=== PATIENT | male | born 1970 | race Caucasian/White ===

== ENCOUNTER 2020-05-22 13:20 | Inpatient (IN) | payer MEDICAID, SELFPAY ==
[~2020-05-22] VITALS: Ht 175.3 cm; Wt 75.1 kg
[~2020-05-22 13:20] MED LIST: /THIA10TA OR; FOLI1TAB OR; THERGRAN PO; ZOLO50TA OR
--- OUTSIDE RECORDS SUMMARY | 2020-05-22 13:25 | CCD ---
Author Author [facility] Organization [facility] Address Unknown Phone Unavailable Support Name Relationship Address Phone UE Next Of Kin Unknown Unavailable MCCARTHY [place] [address] [phone] COUGH, KULWANT Next Of Kin [address] [place], [place] [id number] STEVEN GUTIERREZ Next Of Kin Unknown Re-disclosure Warning The records that you are about to access may contain information from federally-assisted alcohol or drug abuse programs. If such information is present, then the following federally mandated warning applies: This information has been disclosed to you from records protected by federal confidentiality rules (42 CFR part 2). The federal rules prohibit you from making any further disclosure of this information unless further disclosure is expressly permitted by the written consent of the person to whom it pertains or as otherwise permitted by 42 CFR part 2. A general authorization for the release of medical or other information is NOT sufficient for this purpose. The Federal rules restrict any use of the information to criminally investigate or prosecute any alcohol or drug abuse patient.The records that you are about to access may contain highly sensitive health information, the redisclosure of which is protected by Article 27-F of the [facility] Public Health law. If you continue you may have access to information: Regarding HIV / AIDS; Provided by facilities licensed or operated by the [facility] Office of Mental Health; or Provided by the [facility] Office for People With Developmental Disabilities. If such information is present, then the following [facility] mandated warning applies: This information has been disclosed to you from confidential records which are protected by state law. State law prohibits you from making any further disclosure of this information without the specific written consent of the person to whom it pertains, or as otherwise permitted by law. Any unauthorized further disclosure in violation of state law may result in a fine or [place] [facility] sentence or both. A general authorization for the release of medical or other information is NOT sufficient authorization for further disc losure. Insurance Providers Payer name Policy type / Coverage type Policy ID Covered constitution party ID Covered constitution party's relationship to polanco Policy Polanco Plan Information SELF PAY UNAVAILABLE SP UNAVAILA ELISABET [facility] [id number] SP [id number]
[2020-05-22 14:51] LABS: HEMATOCRIT 41.4 % (42.0-52.0); HEMOGLOBIN 14.7 g/dl (13.5-17.5); MEAN CORPUSCULAR HEMOGLOBIN 33.9 pg (27.0-33.0); MEAN CORPUSCULAR HGB CONC 35.5 g/dl (32.0-36.5); MEAN CORPUSCULAR VOLUME 95.4 fl (80.0-96.0); PLATELET COUNT, AUTOMATED 259 10^3/uL (150-450); RED BLOOD COUNT 4.34 10^6/uL (4.30-6.10); WHITE BLOOD COUNT 9.5 10^3/uL (4.0-10.0)
[2020-05-22 15:14] LABS: AMPHETAMINES LEVEL URINE NEGATIVE (NEGATIVE); BARBITURATES URINE NEGATIVE (NEGATIVE); BENZODIAZEPINES URINE NEGATIVE (NEGATIVE); CANNABINOIDS URINE POSITIVE (NEGATIVE); COCAINE METABOLITE URINE NEGATIVE (NEGATIVE); METHADONE URINE NEGATIVE (NEGATIVE); OPIATES URINE NEGATIVE (NEGATIVE); PHENCYCLIDINE URINE NEGATIVE (NEGATIVE)
[2020-05-22 15:29] LABS: ACETAMINOPHEN LEVEL < 2.0 UG/ML (10.0-30.0); ALT/SGPT 90 U/L (12-78); BILIRUBIN,DIRECT 0.2 MG/DL (0.0-0.2); BILIRUBIN,TOTAL 0.6 MG/DL (0.2-1.0); BLOOD UREA NITROGEN 7 MG/DL (7-18); CALCIUM LEVEL 9.1 MG/DL (8.5-10.1); CARBON DIOXIDE LEVEL 24 MEQ/L (21-32); CHLORIDE LEVEL 102 MEQ/L (98-107); CREATININE FOR GFR 0.64 MG/DL (0.70-1.30); ETHYL ALCOHOL (ETHANOL) 0.287 % (0.000-0.010); GLOMERULAR FILTRATION RATE > 60.0 (>60); GLUCOSE, FASTING 78 MG/DL (70-100); POTASSIUM SERUM 3.7 MEQ/L (3.5-5.1); SODIUM LEVEL 138 MEQ/L (136-145); THYROID STIMULATING HORMONE 0.708 uIU/ML (0.358-3.740); TOTAL PROTEIN 6.9 GM/DL (6.4-8.2)
--- OUTSIDE RECORDS SUMMARY | 2020-05-22 15:29 | CCD ---
Author Author [facility] Organization [facility] Address Unknown Phone Unavailable Support Name Relationship Address Phone UE Next Of Kin Unknown Unavailable MCCAR[place] [address] [phone] COUGH, KULWANT Next Of Kin [address] [place], [place] [id number] STEVEN GUTIERREZ Next Of Kin Unknown Re-disclosure [...] is protected by Article 27-F of the [facility] Public Health law. If you continue you may have access to information: Regarding HIV / AIDS; Provided by facilities licensed or operated by the [facility] Office of Mental Health; or Provided by the [facility] Office for People With Developmental Disabilities. If such information is present, then the following [facility] mandated warning applies: This information has been [...] law may result in a fine or fpc sentence or both. A general authorization for the release of medical or other information is NOT sufficient authorization for further disc losure. Insurance Providers Payer name Policy type / Coverage type Policy ID Covered constitution party ID Covered constitution party's relationship to polanco Policy Polanco Plan Information SELF PAY UNAVAILABLE SP UNAVAILA ELISABET [facility] [id number] SP [id number]
[2020-05-22] MEDS ORDERED: OXAZEPAM 15 MG CAP PO ONE (16:00)
[2020-05-22] MEDS ORDERED: ONDANSETRON 4 MG ORAL DISINTEGRATING TAB PO ONE ×2 (16:45→22:30)
[2020-05-22] MEDS ORDERED: IBUPROFEN 800 MG TAB PO ONE (21:00)
[2020-05-22] MEDS: THIAMINE 100 MG TAB PO SCH (21:02)
[2020-05-22] MEDS ORDERED: LORazepam 2 MG/ML VIAL IM STA (22:17)
[2020-05-23] MEDS: LORazepam 2 MG TAB PO PRN ×4 (04:41→21:00)
--- NOTE | 2020-05-23 08:12 | ECGEPIP ---
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
[2020-05-23] MEDS: THIAMINE 100 MG TAB PO SCH ×2 (08:54→21:00)
[2020-05-23] MEDS ORDERED: MULTIVITAMINS/MINERALS THERAP 1 TAB PO SCH (09:00)
[2020-05-23] MEDS ORDERED: FOLIC ACID 1 MG TAB PO SCH (09:00)
[2020-05-23] MEDS ORDERED: MAALOX 30 ML SUSP *UDC PO PRN (16:15)
[2020-05-23] MEDS ORDERED: MOM 30ML SUSPENSION UDC PO PRN (16:15)
--- OUTSIDE RECORDS SUMMARY | 2020-05-23 16:28 | CCD ---
Author Author [facility] Organization [facility] Address Unknown Phone Unavailable Support Name Relationship Address Phone UE Next Of Kin Unknown Unavailable MCCARTHY [place] [address] [phone] COUGH, KULWANT Next Of Kin [address] [place] [address] STEVEN GUTIERREZ Next Of Kin Unknown Re-disclosure [...] is protected by Article 27-F of the [facility] Public Health law. If you continue you may have access to information: Regarding HIV / AIDS; Provided by facilities licensed or operated by the [facility] Office of Mental Health; or Provided by the [facility] Office for People With Developmental Disabilities. If such information is present, then the following [facility] mandated warning applies: This information [...] law may result in a fine or longterm sentence or both. A general authorization for the release of medical or other information is NOT sufficient authorization for further disc losure. Insurance Providers Payer name Policy type / Coverage type Policy ID Covered green party ID Covered green party's relationship to polanco Policy Polanco Plan Information SELF PAY ONLY [id number] SP [id number] SELF PAY UNAVAILABLE SP UNAVAILA ELISABET [facility] [id number]
[2020-05-23] MEDS ORDERED: THIAMINE 100 MG TAB PO SCH (16:30)
[2020-05-23 17:14] LABS: RSV AMPLIFICATION NEGATIVE (NEGATIVE)
[2020-05-23 17:34] VITALS: BP 155/97
[2020-05-23 17:53] VITALS: BP 155/97
[2020-05-23 20:08] VITALS: BP 158/110
[2020-05-23] MEDS: ACETAMINOPHEN TAB 650MG DOSE (2X325MG) PO PRN (21:00)
[2020-05-23 22:40] VITALS: BP 126/89
[2020-05-24 01:00] VITALS: BP 135/97
[2020-05-24 05:26] VITALS: BP 144/102
[2020-05-24 06:25] VITALS: BP 144/102
[2020-05-24] MEDS: FOLIC ACID 1 MG TAB PO SCH (09:01)
[2020-05-24] MEDS: MULTIVITAMINS/MINERALS THERAP 1 TAB PO SCH (09:01)
[2020-05-24] MEDS: THIAMINE 100 MG TAB PO SCH ×2 (09:01→20:36)
[2020-05-24] MEDS: ACETAMINOPHEN TAB 650MG DOSE (2X325MG) PO PRN (10:38)
[2020-05-24] MEDS: NICOTINE 21MG/24HR 1 EA TRANSDERMAL TD SCH (12:30)
[2020-05-24 12:55] VITALS: BP 152/100
[2020-05-24] MEDS: LORazepam 2 MG TAB PO PRN ×2 (12:56→17:50)
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
[2020-05-24 15:13] VITALS: BP 142/96
[2020-05-24 17:48] VITALS: BP 144/96
[2020-05-24] MEDS: traZODone 50 MG TAB PO PRN (20:36)
[2020-05-25] VITALS (8 sets, daily range): BP systolic 130–177; BP diastolic 88–112
[2020-05-25] MEDS: FOLIC ACID 1 MG TAB PO SCH (08:19)
[2020-05-25] MEDS: THIAMINE 100 MG TAB PO SCH (08:19)
[2020-05-25] MEDS: MULTIVITAMINS/MINERALS THERAP 1 TAB PO SCH (08:19)
[2020-05-25] MEDS: NICOTINE 21MG/24HR 1 EA TRANSDERMAL TD SCH (08:20)
[2020-05-25] MEDS: ACETAMINOPHEN TAB 650MG DOSE (2X325MG) PO PRN (08:22)
[2020-05-25] MEDS: hydrOXYzine 50 MG TAB PO PRN ×2 (11:15→20:32)
--- NOTE | 2020-05-25 11:15 | MHIPNPDOC ---
[facility] Progress Note Progress Note DATE OF SERVICE: 05/25/20 HISTORY OF THE PRESENT ILLNESS: Patient is a 49 -year-old , male, with two reported prior psychiatric admissions for suicidal ideations, who presents to the emergency room after he reported +si due to ongoing issues with his son. Matt states he was working in [place], "making a lot money" until his son called him saying that he had recently got and that his new was "a little bit loopy" so asked if Matt would move back in with them in [place] to help take care of her son, who has special needs. Matt states he was concerned about not having a job but that his son promised to take care of him if he moved to [place]. He states that after he moved here, the child's medications were coming up missing, states he was taking "adderall and something else." Matt stated that after a few months of the child running out of medications early, he confronted the son and , who accused Matt of taking the medication from the child. He states he called the voice over artist and cps, who stated that either him or the family had to move out, so the son, and child moved into a motel. Subsequently, the son and his were drug tested and both were found to have opiates in their system so the child was removed from their care. Shortly after, Matt states he was served a no contact order and that he had to leave the house and went to stay at a friend's house for a few days, where he became intoxicated and had suicidal thoughts, no plan/intent. He currently denies i/hi, but does report "a lot anxiety," which is not normally his baseline. VITAL SIGNS: See below. CURRENT MEDICATIONS: See below. Mental Status Examination General Appearance: disheveled, ds/not appear stated age, hospital scubs/clothing Build: average Demeanor: average Eye Contact: average Activity: average, anxious Behavior: cooperative, restless Speech: clear, normal volume, reg/rate,rhythm,volume Mood: depressed Affect: flat, congruent Thought Process: logical/linear Thought Content (Delusions): none reported, denies SI, HI, AVH Thought Content (Other): none reported Thought Content (Aggressive): none reported Perception (Hallucinations): none reported Perception (Other): none reported Cognition (Impairment of): none reported Cognition(Intelligence Est.): average Oriented: Awake, Alert, Oriented times three Insight: fair Judgment: Fair Psychosis: Denies DIAGNOSES: 1. adjustment disorder with anxious and depressed mood ASSESSMENT: Patient reports that he experiencing a lot of chronic LBP pain but reports his mood is "getting better, trying to think positive." He states depression is 10/10, and anxiety is also a 10/10, but denies suicidal thoughts. He reports he doesn't feel he needs an antidepressant, states, "I just have to work through it" as his depression is situational due to the incident with his son and his current living and financial situation. He is however, requesting something for anxiety, as he states "it's up there." He has hydroxyzine ordered prn and he hasn't tried that yet. He is agreeable to trying that. He reports he doesn't feel ready to d/c yet and that the d/c supply planner is working on finding him housing for after d/c. MANAGEMENT PLAN: Continue all medications collaborate with d/c supply planner for housing options Will discharge when stable TIME SPENT: 30 minutes. Vital Signs Vital Signs Date Time Temp Pulse Resp B/P (MAP) Pulse Ox O2 Delivery O2 Flow Rate FiO2 05/25/20 06:30 99 138/96 05/25/20 06:18 97.4 16 98 Room Air Current Medications Current Medications Medications (Trade) Dose Ordered Sig/Namita Route PRN Reason Start Time Stop Time Status Last Admin Dose Admin Acetaminophen (Tylenol Tab) 650 mg Q6HP PRN PO HEADACHE or DISCOMFORT 05/23/20 16:15 05/25/20 08:22 Al Hydrox/Mg Hydrox/Simethicone (Mylanta) 30 ml Q4HP PRN PO HEARTBURN/INDIGESTION 05/23/20 16:15 Folic Acid (Folic Acid) 1 mg DAILY PO 05/23/20 09:00 05/23/20 17:46 DC 05/23/20 08:53 Folic Acid (Folic Acid) 1 mg DAILY PO 05/24/20 09:00 05/25/20 08:19 Home Med (Med Rec Complete!) ASDIRECTED XX 05/23/20 07:00 05/23/20 06:49 DC Hydroxyzine HCl (Atarax) 50 mg BIDP PRN PO ANXIETY/AGITATION 05/24/20 12:45 Lorazepam (Ativan) 2 mg ASDIRECTED PRN PO SEE PROTOCOL 05/22/20 19:00 05/23/20 17:46 DC 05/23/20 08:53 Lorazepam (Ativan) 2 mg ASDIRECTED PRN PO SEE PROTOCOL 05/23/20 16:15 05/24/20 17:50 Lorazepam (Ativan) 2 mg STAT STAT IM 05/22/20 22:17 05/22/20 22:18 DC 05/22/20 22:33 Magnesium Hydroxide (Milk Of Magnesia) 30 ml DAILYPRN PRN PO CONSTIPATION 05/23/20 16:15 Multivitamins (Theragram-M) 1 tab DAILY PO 05/23/20 09:00 05/23/20 17:46 DC 05/23/20 08:53 Multivitamins (Theragram-M) 1 tab DAILY PO 05/24/20 09:00 05/25/20 08:19 Nicotine (Nicoderm Cq 21mg) 1 patch DAILY TD 05/24/20 09:00 05/25/20 08:20 Thiamine HCl (Thiamine HCl) 100 mg BID PO 05/22/20 21:00 05/23/20 17:46 DC 05/23/20 08:54 Thiamine HCl (Thiamine HCl) 100 mg BID PO 05/23/20 16:30 05/23/20 16:25 DC Thiamine HCl (Thiamine HCl) 100 mg BID PO 05/23/20 21:00 05/25/20 09:01 DC 05/25/20 08:19 Trazodone HCl (Desyrel) 50 mg QHSP PRN PO INSOMNIA 05/23/20 16:15 05/24/20 20:36 Allergies Coded Allergies: No Known Allergies (Verified Allergy, Unknown, 05/22/20) SEJAL DAVISON NP May 25, 2020 11:14
[2020-05-25] MEDS: IBUPROFEN 600MG TAB PO PRN ×2 (11:16→20:33)
[2020-05-25] MEDS: LORazepam 2 MG TAB PO PRN ×2 (15:56→20:35)
--- NOTE | 2020-05-25 18:19 | HPEPDOC ---
General Date of Admission May 23, 2020 at 16:15 Date of Service: May 25, 2020 Chief Complaint The patient is a 49-year-old male admitted with a reason for visit of Unspecified Depressive Disorder,Etoh Use Disorder. Source: Patient Exam Limitations: No limitations Timing/Duration: Day(s) Severity: Mild, Moderate History of Present Illness Patient is 49 years old male with past medical history of hypertension, depression, anxiety presented to the hospital with suicidal ideation. He reported suicidal ideation due to ongoing issues with his son. During my interview patient denied fever, chills, nausea, diarrhea or dysuria. Of note patient had multiple suicidal ideation in the past Home Medications No Active Prescriptions or Reported Meds Allergies Coded Allergies: No Known Allergies (Verified Allergy, Unknown, 05/22/20) Past Medical History Medical History hypertension 2015 - herniated disk in L4, chronic pain Surgical History (lower back surgery on L4 - 2016, appendectomy - unknown year, orthopaedic on L. index finger - 1996 Family History dad - at 49 - heart attack mother - heart disease - alive sister - diabetes Social History * Smoker: current smoker Alcohol: occationally Drugs: denies A-FIB/CHADSVASC A-FIB History Current/History of A-Fib/PAF?: No Current PO Anticoag Therapy: No Review of Systems Constitutional: Denies: Chills, Fever Eyes: Denies: Pain ENT: Denies: Head Aches Skin: Denies: Rash Cardiovascular: Denies: Chest Pain Gastrointestinal: Denies: Nausea, Vomiting Genitourinary: Denies: Dysuria Hematologic: Denies: Bruising Endocrine: Denies: Polydipsia Musculoskeletal: Denies: Neck Pain Neurological: Denies: Weakness Psych: Reports: Anxiety, Depression Physical Examination General Exam: Positive: Alert, Cooperative Eye Exam: Positive: PERRLA ENT Exam: Positive: Atraumatic Neck Exam: Positive: Supple; Negative: JVD Chest Exam: Positive: Clear to auscultation Heart Exam: Positive: Rate Normal Telemetry: Positive: No significant arrhythmia Abdomen Exam: Positive: Normal bowel sounds Extremity Exam: Negative: Clubbing Skin Exam: Positive: Nl turgor and temperature Neuro Exam: Positive: Normal Gait Psych Exam: Positive: Anxiety Vital Signs Vital Signs Date Time Temp Pulse Resp B/P (MAP) Pulse Ox O2 Delivery O2 Flow Rate FiO2 2/4/21 16:21 99.0 110 16 160/100 (120) 98 Room Air Assessment/Plan Patient is 49 years old male with past medical history of hypertension, depression, anxiety presented to the hospital with suicidal ideation. He reported suicidal ideation due to ongoing issues with his son. During my interview patient denied fever, chills, nausea, diarrhea or dysuria. Of note patient had multiple suicidal ideation in the past Problems (1) Depression with suicidal ideation Status: Acute Problem Text: defer treatment psych team (2) Hypertension Status: Chronic Problem Text: Lisinopril 20 mg daily Plan / VTE VTE Prophylaxis Ordered?: No VTE Exclusion Mechanical Proph: Low Risk for VTE GIDEON CANALES DO May 25, 2020 18:19
[2020-05-25] MEDS: traZODone 50 MG TAB PO PRN (20:32)
[2020-05-26 06:31] VITALS: BP 145/104
[2020-05-26 06:32] VITALS: BP 145/104
[2020-05-26] MEDS: MULTIVITAMINS/MINERALS THERAP 1 TAB PO SCH (08:26)
[2020-05-26] MEDS: NICOTINE 21MG/24HR 1 EA TRANSDERMAL TD SCH (08:26)
[2020-05-26] MEDS: FOLIC ACID 1 MG TAB PO SCH (08:26)
[2020-05-26] MEDS: hydrOXYzine 50 MG TAB PO PRN (08:27)
--- NOTE | 2020-05-26 13:36 | MHIPNPDOC ---
[facility] Progress Note Progress Note DATE OF SERVICE: 05/26/20 HISTORY OF THE PRESENT ILLNESS: Patient is a 49 -year-old , male, with two reported prior psychiatric admissions for suicidal ideations, who presents to the emergency room after he reported +si due to ongoing issues with his son. Matt states he was working in [email or web address], "making a lot money" until his son called him saying that he had recently got and that his new was "a little bit loopy" so asked if Matt would move back in with them in [place] to help take care of her son, who has special needs. Matt states he was concerned about not having a job but that his son promised to take care of him if he moved to [place]. He states that after he moved here, the child's medications were coming up missing, states he was taking "adderall and something else." Matt stated that after a few months of the child running out of medications early, he confronted the son and , who accused Matt of taking the medication from the child. He states he called the elementary school principal and cps, who stated that either him or the family had to move out, so the son, and child moved into a motel. Subsequently, the son and his were drug tested and both were found to have opiates in their system so the child was removed from their care. Shortly after, Matt states he was served a no contact order and that he had to leave the house and went to stay at a friend's house for a few days, where he became intoxicated and had suicidal thoughts, no plan/intent. He currently denies i/hi, but does report "a lot anxiety," which is not normally his baseline. VITAL SIGNS: See below. CURRENT MEDICATIONS: See below. Mental Status Examination General Appearance: disheveled, ds/not appear stated age, hospital scubs/clothing Build: average Demeanor: average Eye Contact: average Activity: average, anxious Behavior: cooperative Speech: clear, normal volume, reg/rate,rhythm,volume Mood: depressed Affect: flat, congruent Thought Process: logical/linear Thought Content (Delusions): none reported, denies SI, HI, AVH Thought Content (Other): none reported Thought Content (Aggressive): none reported Perception (Hallucinations): none reported Perception (Other): none reported Cognition (Impairment of): none reported Cognition(Intelligence Est.): average Oriented: Awake, Alert, Oriented times three Insight: fair Judgment: Fair Psychosis: Denies DIAGNOSES: 1. adjustment disorder with anxious and depressed mood ASSESSMENT: Patient met with director of casework. 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 He came up here to help his son, and feels that he has no one to help him. He wants to return to [place] were he has supports but states he has no money to get there. He has a car here. He states depression is 10/10, and anxiety is also a 10/10, but denies suicidal thoughts. He reports he doesn't feel he needs an antidepressant, states, "I just have to work through it" as his depression is situational due to the incident with his son and his current living and financial situation. He states that anxiety medication is not helping wit his anxiety. States "It's up there." He has hydroxyzine ordered prn and he hasn't tried that yet. Discussed with patient medications that will help him with anxiety, depression and nerve pain. He is agreeable and started Cymbalta 20 mg MANAGEMENT PLAN: Continue all medications collaborate with d/c tool and production planner for housing options Will discharge when stable TIME SPENT: 30 minutes. Vital Signs Vital Signs Date Time Temp Pulse Resp B/P (MAP) Pulse Ox O2 Delivery O2 Flow Rate FiO2 05/26/20 08:27 100 133/92 05/26/20 06:31 98.7 20 98 Room Air Current Medications Current Medications Medications (Trade) Dose Ordered Sig/Namita Route PRN Reason Start Time Stop Time Status Last Admin Dose Admin Acetaminophen (Tylenol Tab) 650 mg Q6HP PRN PO HEADACHE or DISCOMFORT 05/23/20 16:15 05/25/20 11:12 DC 05/25/20 08:22 Al Hydrox/Mg Hydrox/Simethicone (Mylanta) 30 ml Q4HP PRN PO HEARTBURN/INDIGESTION 05/23/20 16:15 Amlodipine Besylate (Norvasc) 10 mg DAILY PO 05/26/20 09:00 05/26/20 08:27 Folic Acid (Folic Acid) 1 mg DAILY PO 05/23/20 09:00 05/23/20 17:46 DC 05/23/20 08:53 Folic Acid (Folic Acid) 1 mg DAILY PO 05/24/20 09:00 05/26/20 08:26 Home Med (Med Rec Complete!) ASDIRECTED XX 05/23/20 07:00 05/23/20 06:49 DC Hydroxyzine HCl (Atarax) 50 mg BIDP PRN PO ANXIETY/AGITATION 05/24/20 12:45 05/26/20 08:27 Ibuprofen (Advil) 600 mg Q6HP PRN PO MODERATE PAIN (PS 5-7) 05/25/20 11:15 05/25/20 20:33 Lisinopril (Prinivil) 20 mg DAILY PO 05/26/20 09:00 05/25/20 18:46 DC Lorazepam (Ativan) 2 mg ASDIRECTED PRN PO SEE PROTOCOL 05/22/20 19:00 05/23/20 17:46 DC 05/23/20 08:53 Lorazepam (Ativan) 2 mg ASDIRECTED PRN PO SEE PROTOCOL 05/23/20 16:15 05/25/20 20:35 Lorazepam (Ativan) 2 mg STAT STAT IM 05/22/20 22:17 05/22/20 22:18 DC 05/22/20 22:33 Magnesium Hydroxide (Milk Of Magnesia) 30 ml DAILYPRN PRN PO CONSTIPATION 05/23/20 16:15 Multivitamins (Theragram-M) 1 tab DAILY PO 05/23/20 09:00 05/23/20 17:46 DC 05/23/20 08:53 Multivitamins (Theragram-M) 1 tab DAILY PO 05/24/20 09:00 05/26/20 08:26 Nicotine (Nicoderm Cq 21mg) 1 patch DAILY TD 05/24/20 09:00 05/26/20 08:26 Thiamine HCl (Thiamine HCl) 100 mg BID PO 05/22/20 21:00 05/23/20 17:46 DC 05/23/20 08:54 Thiamine HCl (Thiamine HCl) 100 mg BID PO 05/23/20 16:30 05/23/20 16:25 DC Thiamine HCl (Thiamine HCl) 100 mg BID PO 05/23/20 21:00 2/4/21 09:01 DC 05/25/20 08:19 Trazodone HCl (Desyrel) 50 mg QHSP PRN PO INSOMNIA 05/23/20 16:15 05/25/20 20:32 Allergies Coded Allergies: No Known Allergies (Verified Allergy, Unknown, 05/22/20) SEJAL DAVISON NP May 26, 2020 13:25
[2020-05-26] MEDS: DULoxetine 20 MG CAP (CYMBALTA) PO SCH (13:46)
[2020-05-26 15:41] VITALS: BP 127/85
[2020-05-26] MEDS: IBUPROFEN 600MG TAB PO PRN (20:22)
[2020-05-26] MEDS: traZODone 50 MG TAB PO PRN (20:56)
[2020-05-26 22:34] VITALS: BP 143/92
[2020-05-27 06:17] VITALS: BP 162/72
[2020-05-27] MEDS: IBUPROFEN 600MG TAB PO PRN ×3 (08:20→20:57)
[2020-05-27] MEDS: DULoxetine 20 MG CAP (CYMBALTA) PO SCH (08:21)
[2020-05-27] MEDS: NICOTINE 21MG/24HR 1 EA TRANSDERMAL TD SCH (08:21)
[2020-05-27] MEDS: hydrOXYzine 50 MG TAB PO PRN (14:50)
[2020-05-27 16:33] VITALS: BP 130/85
[2020-05-27] MEDS: traZODone 50 MG TAB PO PRN (20:57)
[2020-05-28 06:21] VITALS: BP 144/86
[2020-05-28] MEDS: NICOTINE 21MG/24HR 1 EA TRANSDERMAL TD SCH ×2 (08:08→09:27)
[2020-05-28] MEDS: DULoxetine 20 MG CAP (CYMBALTA) PO SCH (08:08)
[2020-05-28] MEDS: IBUPROFEN 600MG TAB PO PRN ×3 (08:09→20:33)
--- NOTE | 2020-05-28 09:20 | MHIPN ---
[facility] PROGRESS NOTE DATE: 05/27/2020 The patient today tells me that he is feeling "better." He tells me that he did not sleep well last night but he thinks that he was "hyped up" after he took his first dose of Cymbalta at 2 p.m. yesterday, he thinks that is why he could not sleep well, because he had been sleeping before that better. Today, he took his Cymbalta at 9 o'clock this morning and so he is hoping that it is not going to interfere with his sleeping tonight. He denies being suicidal. He is still feeling somewhat depressed but better. MENTAL STATUS EXAMINATION: He is alert and oriented times three, pleasant and cooperative, verbally spontaneous. Eye contact is good. There is no formal thought disorder noted. Mood is less depressed. Affect appropriate. He is not psychotic, suicidal, or homicidal. Concentration is fair. Memory intact. Insight and judgment is fair. DIAGNOSIS: Adjustment disorder with mixed anxiety and depression. TREATMENT PLAN: At this point, the patient will continue his Cymbalta and we will see how he does, because he did take his Cymbalta earlier, to see how he sleeps tonight, and we will continue to titrate his medications as indicated and continue to monitor the patient's continued resolution of suicidal ideation and continued elevation and stabilization of his mood.
[2020-05-28] MEDS: hydrOXYzine 50 MG TAB PO PRN ×2 (12:02→20:32)
[2020-05-28 16:12] VITALS: BP 125/86
[2020-05-28] MEDS: traZODone 50 MG TAB PO PRN (22:06)
[2020-05-29 06:37] VITALS: BP 126/77
[2020-05-29] MEDS: DULoxetine 20 MG CAP (CYMBALTA) PO SCH (07:58)
[2020-05-29] MEDS: IBUPROFEN 600MG TAB PO PRN ×2 (07:59→14:54)
[2020-05-29] MEDS: NICOTINE 21MG/24HR 1 EA TRANSDERMAL TD SCH (08:51)
[2020-05-29] MEDS: NICOTINE POLACRILEX 2 MG GUM PO PRN ×2 (10:30→17:13)
[2020-05-29] MEDS: hydrOXYzine 50 MG TAB PO PRN ×2 (12:20→20:07)
--- NOTE | 2020-05-29 15:41 | MHIPNPDOC ---
[facility] Progress Note Progress Note DATE OF SERVICE: 05/29/20 HISTORY OF THE PRESENT ILLNESS: Patient is a 49 -year-old , male, with two reported prior psychiatric admissions for suicidal ideations, who presents to the emergency room after he reported +si due to ongoing issues with his son. Matt states he was working in [employer], "making a lot money" until his son called him saying that he had recently got and that his new was "a little bit loopy" so asked if Matt would move back in with them in [place] to help take care of her son, who has special needs. Matt states he was concerned about not having a job but that his son promised to take care of him if he moved to [place]. He states that after he moved here, the child's medications were coming up missing, states he was taking "adderall and something else." Matt stated that after a few months of the child running out of medications early, he confronted the son and , who accused Matt of taking the medication from the child. He states he called the ham smoker and cps, who stated that either him or the family had to move out, so the son, and child moved into a motel. Subsequently, the son and his were drug tested and both were found to have opiates in their system so the child was removed from their care. Shortly after, Matt states he was served a no contact order and that he had to leave the house and went to stay at a friend's house for a few days, where he became intoxicated and had suicidal thoughts, no plan/intent. He currently denies i/hi, but does report "a lot anxiety," which is not normally his baseline. VITAL SIGNS: See below. CURRENT MEDICATIONS: See below. Mental Status Examination Patient is a 49 -year-old , male, with two reported prior psychiatric admissions for suicidal ideations, who presents to the emergency room after he reported +si due to ongoing issues with his son. General Appearance: disheveled, ds/not appear stated age, hospital scrubs/clothing Build: average Demeanor: average Eye Contact: average Activity: average, anxious Behavior: cooperative Speech: clear, normal volume, reg/rate,rhythm,volume Mood: depressed Affect: flat, congruent Thought Process: logical/linear Thought Content (Delusions): none reported, denies SI, HI, AVH Thought Content (Other): none reported Thought Content (Aggressive): none reported Perception (Hallucinations): none reported Perception (Other): none reported Cognition (Impairment of): none reported Cognition(Intelligence Est.): average Oriented: Awake, Alert, Oriented times three Insight: fair Judgment: Fair Psychosis: Denies DIAGNOSES: 1. adjustment disorder with anxious and depressed mood ASSESSMENT: Patient started Cymbalta 20 mg last week and states that he is feeling improvement, he states that it has not helped with his chronic back pain. Reports that he still has trouble sleeping. He reports concern about his vehicle being able to start because it has not been run for several days, he is afraid it may be . He admits to continued depression but is decreasing at this writing. MANAGEMENT PLAN: Continue all medications, increase Trazodone to 100 mg per his complaints of poor sleep - not able to maintain slumber throughout the night. collaborate with d/c transportation planner for housing options Will discharge when stable TIME SPENT: 30 minutes. Vital Signs Vital Signs Date Time Temp Pulse Resp B/P (MAP) Pulse Ox O2 Delivery O2 Flow Rate FiO2 05/29/20 06:37 98.6 86 18 126/77 (93) 99 Room Air Current Medications Current Medications Medications (Trade) Dose Ordered Sig/Namita Route PRN Reason Start Time Stop Time Status Last Admin Dose Admin Acetaminophen (Tylenol Tab) 650 mg Q6HP PRN PO HEADACHE or DISCOMFORT 05/23/20 16:15 05/25/20 11:12 DC 05/25/20 08:22 Acetaminophen (Tylenol Tab) 650 mg Q6HP PRN PO PAIN / FEVER 05/29/20 13:00 Al Hydrox/Mg Hydrox/Simethicone (Mylanta) 30 ml Q4HP PRN PO HEARTBURN/INDIGESTION 05/23/20 16:15 Amlodipine Besylate (Norvasc) 10 mg DAILY PO 05/26/20 09:00 05/29/20 07:59 Duloxetine HCl (Cymbalta) 20 mg DAILY PO 05/26/20 09:00 05/29/20 07:58 Folic Acid (Folic Acid) 1 mg DAILY PO 05/23/20 09:00 05/23/20 17:46 DC 05/23/20 08:53 Folic Acid (Folic Acid) 1 mg DAILY PO 05/24/20 09:00 05/26/20 22:53 DC 05/26/20 08:26 Home Med (Med Rec Complete!) ASDIRECTED XX 05/23/20 07:00 05/23/20 06:49 DC Hydroxyzine HCl (Atarax) 50 mg BIDP PRN PO ANXIETY/AGITATION 05/24/20 12:45 05/26/20 13:40 DC 05/26/20 08:27 Hydroxyzine HCl (Atarax) 100 mg Q6HP PRN PO ANXIETY 05/26/20 13:45 05/29/20 12:20 Ibuprofen (Advil) 600 mg Q6HP PRN PO MODERATE PAIN (PS 5-7) 05/25/20 11:15 05/29/20 14:54 Lisinopril (Prinivil) 20 mg DAILY PO 05/26/20 09:00 05/25/20 18:46 DC Lorazepam (Ativan) 2 mg ASDIRECTED PRN PO SEE PROTOCOL 05/22/20 19:00 05/23/20 17:46 DC 05/23/20 08:53 Lorazepam (Ativan) 2 mg ASDIRECTED PRN PO SEE PROTOCOL 05/23/20 16:15 05/26/20 22:53 DC 05/25/20 20:35 Lorazepam (Ativan) 2 mg STAT STAT IM 05/22/20 22:17 05/22/20 22:18 DC 05/22/20 22:33 Magnesium Hydroxide (Milk Of Magnesia) 30 ml DAILYPRN PRN PO CONSTIPATION 05/23/20 16:15 Multivitamins (Theragram-M) 1 tab DAILY PO 05/23/20 09:00 05/23/20 17:46 DC 05/23/20 08:53 Multivitamins (Theragram-M) 1 tab DAILY PO 05/24/20 09:00 05/26/20 22:53 DC 05/26/20 08:26 Nicotine (Nicoderm Cq 21mg) 1 patch DAILY TD 05/24/20 09:00 05/29/20 08:53 DC 05/28/20 09:27 Nicotine (Nicorette) 4 mg Q4HP PRN PO NICOTINE WITHDRAWAL 05/29/20 09:00 05/29/20 10:30 Thiamine HCl (Thiamine HCl) 100 mg BID PO 05/22/20 21:00 05/23/20 17:46 DC 05/23/20 08:54 Thiamine HCl (Thiamine HCl) 100 mg BID PO 05/23/20 16:30 05/23/20 16:25 DC Thiamine HCl (Thiamine HCl) 100 mg BID PO 05/23/20 21:00 05/25/20 09:01 DC 05/25/20 08:19 Trazodone HCl (Desyrel) 50 mg QHSP PRN PO INSOMNIA 05/23/20 16:15 05/29/20 10:54 DC 05/28/20 22:06 Trazodone HCl (Desyrel) 100 mg QHSP PRN PO INSOMNIA 05/29/20 11:00 Allergies Coded Allergies: No Known Allergies (Verified Allergy, Unknown, 05/22/20) SEJAL DAVISON NP May 29, 2020 15:41
[2020-05-29 17:46] VITALS: BP 130/61
[2020-05-29] MEDS: ACETAMINOPHEN TAB 650MG DOSE (2X325MG) PO PRN (20:08)
[2020-05-29] MEDS: traZODone 100 MG TAB PO PRN (20:54)
[2020-05-30 06:44] VITALS: BP_SYST 112; BP_SYST 127; BP_DIAS 66; BP_DIAS 77
[2020-05-30] MEDS: DULoxetine 20 MG CAP (CYMBALTA) PO SCH (08:12)
[2020-05-30] MEDS: IBUPROFEN 600MG TAB PO PRN ×3 (08:13→20:44)
[2020-05-30] MEDS: NICOTINE POLACRILEX 2 MG GUM PO PRN ×3 (08:14→22:03)
[2020-05-30] MEDS: hydrOXYzine 50 MG TAB PO PRN ×2 (10:28→20:45)
[2020-05-30 17:54] VITALS: BP 118/60
--- NOTE | 2020-05-30 21:25 | MHIPNPDOC ---
[facility] Progress Note Progress Note DATE OF SERVICE: 05/30/20 HISTORY OF THE PRESENT ILLNESS: Patient is a 49 -year-old , male, with two reported prior psychiatric admissions for suicidal ideations, who presents to the emergency room after he reported +si due to ongoing issues with his son. Matt states he was working in [employer], "making a lot money" until his son called him saying that he had recently got and that his new was "a little bit loopy" so asked if Matt would move back in with them in [place] to help take care of her son, who has special needs. Matt states he was concerned about not having a job but that his son promised to take care of him if he moved to [place]. He states that after he moved here, the child's medications were coming up missing, states he was taking "adderall and something else." Matt stated that after a few months of the child running out of medications early, he confronted the son and , who accused Matt of taking the medication from the child. He states he called the glove cleaner and cps, who stated that either him or the family had to move out, so the son, and child moved into a motel. Subsequently, the son and his were drug tested and both were found to have opiates in their system so the child was removed from their care. Shortly after, Matt states he was served a no contact order and that he had to leave the house and went to stay at a friend's house for a few days, where he became intoxicated and had suicidal thoughts, no plan/intent. He currently denies i/hi, but does report "a lot anxiety," which is not normally his baseline. VITAL SIGNS: See below. CURRENT MEDICATIONS: See below. Mental Status Examination Patient is a 49 -year-old , male, with two reported prior psychiatric admissions for suicidal ideations, who presents to the emergency room after he reported +si due to ongoing issues with his son. General Appearance: disheveled, appears older than stated age, hospital scrubs/clothing Build: average Demeanor: average Eye Contact: average Activity: average, anxious Behavior: cooperative Speech: clear, normal volume, reg/rate,rhythm,volume Mood: reports continued depression Affect: flat, congruent Thought Process: logical/linear Thought Content (Delusions): none reported, denies SI, HI, AVH Thought Content (Other): none reported Thought Content (Aggressive): none reported Perception (Hallucinations): none reported Perception (Other): none reported Cognition (Impairment of): none reported Cognition(Intelligence Est.): average Oriented: Awake, Alert, Oriented times three Insight: fair Judgment: Fair Psychosis: Denies DIAGNOSES: 1. adjustment disorder with anxious and depressed mood Assessment: Patient is isolative to his room today, reports improved sleep and improvement with Cymbalta. He currently is homeless. And much of his depression is situational. He denies suicidality, homicidality and hallucinations. Patient's depressive symptoms are decreasing, enough so that I feel that he can be discharged this week, pending that he has a safe discharge plan. MANAGEMENT PLAN: Continue all medications collaborate with d/c medical planner for housing options Will discharge when stable TIME SPENT: 30 minutes. Vital Signs Vital Signs Date Time Temp Pulse Resp B/P (MAP) Pulse Ox O2 Delivery O2 Flow Rate FiO2 05/30/20 17:54 99.3 80 16 118/60 (79) 100 05/30/20 06:44 Room Air Current Medications Current Medications Medications (Trade) Dose Ordered Sig/Namita Route PRN Reason Start Time Stop Time Status Last Admin Dose Admin Acetaminophen (Tylenol Tab) 650 mg Q6HP PRN PO HEADACHE or DISCOMFORT 05/23/20 16:15 05/25/20 11:12 DC 05/25/20 08:22 Acetaminophen (Tylenol Tab) 650 mg Q6HP PRN PO PAIN / FEVER 05/29/20 13:00 05/29/20 20:08 Al Hydrox/Mg Hydrox/Simethicone (Mylanta) 30 ml Q4HP PRN PO HEARTBURN/INDIGESTION 05/23/20 16:15 Amlodipine Besylate (Norvasc) 10 mg DAILY PO 05/26/20 09:00 05/30/20 08:12 Duloxetine HCl (Cymbalta) 20 mg DAILY PO 05/26/20 09:00 05/30/20 08:12 Folic Acid (Folic Acid) 1 mg DAILY PO 05/23/20 09:00 05/23/20 17:46 DC 05/23/20 08:53 Folic Acid (Folic Acid) 1 mg DAILY PO 05/24/20 09:00 05/26/20 22:53 DC 05/26/20 08:26 Home Med (Med Rec Complete!) ASDIRECTED XX 05/23/20 07:00 05/23/20 06:49 DC Hydroxyzine HCl (Atarax) 50 mg BIDP PRN PO ANXIETY/AGITATION 05/24/20 12:45 05/26/20 13:40 DC 05/26/20 08:27 Hydroxyzine HCl (Atarax) 100 mg Q6HP PRN PO ANXIETY 05/26/20 13:45 05/30/20 20:45 Ibuprofen (Advil) 600 mg Q6HP PRN PO MODERATE PAIN (PS 5-7) 05/25/20 11:15 05/30/20 20:44 Lisinopril (Prinivil) 20 mg DAILY PO 05/26/20 09:00 05/25/20 18:46 DC Lorazepam (Ativan) 2 mg ASDIRECTED PRN PO SEE PROTOCOL 05/22/20 19:00 05/23/20 17:46 DC 05/23/20 08:53 Lorazepam (Ativan) 2 mg ASDIRECTED PRN PO SEE PROTOCOL 05/23/20 16:15 05/26/20 22:53 DC 05/25/20 20:35 Lorazepam (Ativan) 2 mg STAT STAT IM 05/22/20 22:17 05/22/20 22:18 DC 05/22/20 22:33 Magnesium Hydroxide (Milk Of Magnesia) 30 ml DAILYPRN PRN PO CONSTIPATION 05/23/20 16:15 Multivitamins (Theragram-M) 1 tab DAILY PO 05/23/20 09:00 05/23/20 17:46 DC 05/23/20 08:53 Multivitamins (Theragram-M) 1 tab DAILY PO 05/24/20 09:00 05/26/20 22:53 DC 05/26/20 08:26 Nicotine (Nicoderm Cq 21mg) 1 patch DAILY TD 05/24/20 09:00 05/29/20 08:53 DC 05/28/20 09:27 Nicotine (Nicorette) 4 mg Q4HP PRN PO NICOTINE WITHDRAWAL 05/29/20 09:00 05/30/20 17:58 Thiamine HCl (Thiamine HCl) 100 mg BID PO 05/22/20 21:00 05/23/20 17:46 DC 05/23/20 08:54 Thiamine HCl (Thiamine HCl) 100 mg BID PO 05/23/20 16:30 05/23/20 16:25 DC Thiamine HCl (Thiamine HCl) 100 mg BID PO 05/23/20 21:00 05/25/20 09:01 DC 05/25/20 08:19 Trazodone HCl (Desyrel) 50 mg QHSP PRN PO INSOMNIA 05/23/20 16:15 05/29/20 10:54 DC 05/28/20 22:06 Trazodone HCl (Desyrel) 100 mg QHSP PRN PO INSOMNIA 05/29/20 11:00 05/29/20 20:54 Allergies Coded Allergies: No Known Allergies (Verified Allergy, Unknown, 05/22/20) SEJAL DAVISON NP May 30, 2020 21:25
[2020-05-30] MEDS: traZODone 100 MG TAB PO PRN (21:42)
[2020-05-31 06:42] VITALS: BP 132/78
[2020-05-31] MEDS: DULoxetine 20 MG CAP (CYMBALTA) PO SCH (08:08)
[2020-05-31] MEDS: NICOTINE POLACRILEX 2 MG GUM PO PRN ×4 (08:09→21:38)
[2020-05-31] MEDS: IBUPROFEN 600MG TAB PO PRN ×3 (08:09→22:38)
[2020-05-31] MEDS: hydrOXYzine 50 MG TAB PO PRN ×3 (08:49→22:36)
--- NOTE | 2020-05-31 14:24 | MHIPNPDOC ---
[facility] Progress Note Progress Note DATE OF SERVICE: 05/31/20 HISTORY OF THE PRESENT ILLNESS: Patient is a 49 -year-old , male, with two reported prior psychiatric admissions for suicidal ideations, who presents to the emergency room after he reported +si due to ongoing issues with his son. Matt states he was working in [employer], "making a lot money" until his son called him saying that he had recently got and that his new was "a little bit loopy" so asked if Matt would move back in with them in [place] to help take care of her son, who has special needs. Matt states he was concerned about not having a job but that his son promised to take care of him if he moved to [place]. He states that after he moved here, the child's medications were coming up missing, states he was taking "adderall and something else." Matt stated that after a few months of the child running out of medications early, he confronted the son and , who accused Matt of taking the medication from the child. He states he called the wide area network administrator and cps, who stated that either him or the family had to move out, so the son, and child moved into a motel. Subsequently, the son and his were drug tested and both were found to have opiates in their system so the child was removed from their care. Shortly after, Matt states he was served a no contact order and that he had to leave the house and went to stay at a friend's house for a few days, where he became intoxicated and had suicidal thoughts, no plan/intent. He currently denies i/hi, but does report "a lot anxiety," which is not normally his baseline. VITAL SIGNS: See below. CURRENT MEDICATIONS: See below. Mental Status Examination Patient is a 49 -year-old , male, with two reported prior psychiatric admissions for suicidal ideations, who presents to the emergency room after he reported +si due to ongoing issues with his son. General Appearance: disheveled, appears older than stated age, hospital scrubs/clothing Build: average Demeanor: average Eye Contact: average Activity: average, anxious Behavior: cooperative Speech: clear, normal volume, reg/rate,rhythm,volume Mood: reports continued depression Affect: flat, congruent Thought Process: logical/linear Thought Content (Delusions): none reported, denies SI, HI, AVH Thought Content (Other): none reported Thought Content (Aggressive): none reported Perception (Hallucinations): none reported Perception (Other): none reported Cognition (Impairment of): none reported Cognition(Intelligence Est.): average Oriented: Awake, Alert, Oriented times three Insight: fair Judgment: Fair Psychosis: Denies DIAGNOSES: 1. adjustment disorder with anxious and depressed mood Assessment: Patient is requesting discharge, but states that if he was discharged to [facility] he will only receive housing for two days and he will return. He reports that this is not a safe discharge plan for him. He denies depression, reports anxiety about being able to leave, get his apartment and go to [place]. Patient has been attempting to reach friends to wire him money. I believe that patient is safe for discharge when he has a plan for his housing. At this time, he reports that unless he has more permanent housing he will return to this hospital. He is not reporting any psychotic symptoms, yajaira SI/HI, AH/VH MANAGEMENT PLAN: Continue all medications collaborate with d/c convention planner for housing options Will discharge when stable TIME SPENT: 30 minutes. Vital Signs Vital Signs Date Time Temp Pulse Resp B/P (MAP) Pulse Ox O2 Delivery O2 Flow Rate FiO2 05/31/20 08:08 81 132/78 05/31/20 06:42 98.3 18 96 Room Air Current Medications Current Medications Medications (Trade) Dose Ordered Sig/Namita Route PRN Reason Start Time Stop Time Status Last Admin Dose Admin Acetaminophen (Tylenol Tab) 650 mg Q6HP PRN PO HEADACHE or DISCOMFORT 05/23/20 16:15 05/25/20 11:12 DC 05/25/20 08:22 Acetaminophen (Tylenol Tab) 650 mg Q6HP PRN PO PAIN / FEVER 05/29/20 13:00 05/29/20 20:08 Al Hydrox/Mg Hydrox/Simethicone (Mylanta) 30 ml Q4HP PRN PO HEARTBURN/INDIGESTION 05/23/20 16:15 Amlodipine Besylate (Norvasc) 10 mg DAILY PO 05/26/20 09:00 05/31/20 08:08 Duloxetine HCl (Cymbalta) 20 mg DAILY PO 05/26/20 09:00 05/31/20 08:08 Folic Acid (Folic Acid) 1 mg DAILY PO 05/23/20 09:00 05/23/20 17:46 DC 05/23/20 08:53 Folic Acid (Folic Acid) 1 mg DAILY PO 05/24/20 09:00 05/26/20 22:53 DC 05/26/20 08:26 Home Med (Med Rec Complete!) ASDIRECTED XX 05/23/20 07:00 05/23/20 06:49 DC Hydroxyzine HCl (Atarax) 50 mg BIDP PRN PO ANXIETY/AGITATION 05/24/20 12:45 05/26/20 13:40 DC 05/26/20 08:27 Hydroxyzine HCl (Atarax) 100 mg Q6HP PRN PO ANXIETY 05/26/20 13:45 05/31/20 08:49 Ibuprofen (Advil) 600 mg Q6HP PRN PO MODERATE PAIN (PS 5-7) 05/25/20 11:15 05/31/20 08:09 Lisinopril (Prinivil) 20 mg DAILY PO 05/26/20 09:00 05/25/20 18:46 DC Lorazepam (Ativan) 2 mg ASDIRECTED PRN PO SEE PROTOCOL 05/22/20 19:00 05/23/20 17:46 DC 05/23/20 08:53 Lorazepam (Ativan) 2 mg ASDIRECTED PRN PO SEE PROTOCOL 05/23/20 16:15 05/26/20 22:53 DC 05/25/20 20:35 Lorazepam (Ativan) 2 mg STAT STAT IM 05/22/20 22:17 05/22/20 22:18 DC 05/22/20 22:33 Magnesium Hydroxide (Milk Of Magnesia) 30 ml DAILYPRN PRN PO CONSTIPATION 05/23/20 16:15 Multivitamins (Theragram-M) 1 tab DAILY PO 05/23/20 09:00 05/23/20 17:46 DC 05/23/20 08:53 Multivitamins (Theragram-M) 1 tab DAILY PO 05/24/20 09:00 05/26/20 22:53 DC 05/26/20 08:26 Nicotine (Nicoderm Cq 21mg) 1 patch DAILY TD 05/24/20 09:00 05/29/20 08:53 DC 05/28/20 09:27 Nicotine (Nicorette) 4 mg Q4HP PRN PO NICOTINE WITHDRAWAL 05/29/20 09:00 05/31/20 12:35 Thiamine HCl (Thiamine HCl) 100 mg BID PO 05/22/20 21:00 05/23/20 17:46 DC 05/23/20 08:54 Thiamine HCl (Thiamine HCl) 100 mg BID PO 05/23/20 16:30 05/23/20 16:25 DC Thiamine HCl (Thiamine HCl) 100 mg BID PO 05/23/20 21:00 05/25/20 09:01 DC 05/25/20 08:19 Trazodone HCl (Desyrel) 50 mg QHSP PRN PO INSOMNIA 05/23/20 16:15 05/29/20 10:54 DC 05/28/20 22:06 Trazodone HCl (Desyrel) 100 mg QHSP PRN PO INSOMNIA 05/29/20 11:00 05/30/20 21:42 Allergies Coded Allergies: No Known Allergies (Verified Allergy, Unknown, 05/22/20) SEJAL DAVISON NP May 31, 2020 14:24
[2020-05-31 18:15] VITALS: BP 125/64
[2020-05-31] MEDS: ACETAMINOPHEN TAB 650MG DOSE (2X325MG) PO PRN (20:34)
[2020-05-31] MEDS: traZODone 100 MG TAB PO PRN (22:36)
[2020-06-01] MEDS: NICOTINE POLACRILEX 2 MG GUM PO PRN (07:32)
[2020-06-01 08:20] VITALS: BP 124/86
[2020-06-01] MEDS: DULoxetine 20 MG CAP (CYMBALTA) PO SCH (08:20)
[2020-06-01] MEDS: hydrOXYzine 50 MG TAB PO PRN (08:21)
[2020-06-01] MEDS: IBUPROFEN 600MG TAB PO PRN (08:22)
[2020-06-01] MEDS ORDERED: HYDR50TA70 PO ×2 (09:25→10:35)
[2020-06-01] MEDS ORDERED: TRAZ-257 PO ×2 (09:25→10:35)
[2020-06-01] MEDS ORDERED: CYMB1CAP4 PO ×2 (09:25→10:35)
[2020-06-01] MEDS ORDERED: AMLO1TAB25 PO ×2 (09:25→10:35)
[2020-06-01] MEDS ORDERED: NICO2GUM PO ×2 (09:25→10:35)
[2020-06-01] MEDS ORDERED: IBUP-1022 PO ×2 (09:26→10:35)
--- NOTE | 2020-06-01 13:43 | MHDSPDOC ---
[facility] Discharge Summary Discharge Summary DATE OF ADMISSION: May 23, 2020 at 16:15 DATE OF DISCHARGE: June 01, 2020 at 1108 DISCHARGE DIAGNOSES: Adjustment disorder with Anxiety and Depressed Mood Alcohol Use Disorder Tobacco Use Disorder REASON FOR ADMISSION: Patient is a 49 -year-old , male, with two reported prior psychiatric admissions for suicidal ideations, who presents to the emergency room after he reported +si due to ongoing issues with his son. Matt states he was working in [employer], "making a lot money" until his son called him saying that he had recently got and that his new was "a little bit loopy" so asked if Matt would move back in with them in [place] to help take care of her son, who has special needs. Matt states he was concerned about not having a job but that his son promised to take care of him if he moved to [place]. He states that after he moved here, the child's medications were coming up missing, states he was taking "adderall and something else." Matt stated that after a few months of the child running out of medications early, he confronted the son and , who accused Matt of taking the medication from the child. He states he called the coordinator hotels and cps, who stated that either him or the family had to move out, so the son, and child moved into a motel. Subsequently, the son and his were drug tested and both were found to have opiates in their system so the child was removed from their care. Shortly after, Matt states he was served a no contact order and that he had to leave the house and went to stay at a friend's house for a few days, where he became intoxicated and had suicidal thoughts, no plan/intent. He currently denies i/hi, but does report "a lot anxiety," which is not normally his baseline. CONSULTANTS INVOLVED: See Medical H + P by Hospitalist TREATMENT AND PROGRESS ON THE UNIT: Patient was admitted to the [facility] on a legal status he was afforded the following treatment modalities: 1) Individual Therapy 2) Group Therapy 3) Medication Management 4) Milieu Therapy 5) Safe Environment HOSPITAL COURSE: Patient was admitted to [facility] on a legal status. Patient was reporting depression and suicidality while inebriated. He had moved here from [place] to help his son who was dishonest with him and subsequently CPS was involved and it resulted in the patient having to move out of his son's home. This left him homeless. During his hospitalization he reported depression but was resistive to medications. He complained of chronic back pain, depression and poor sleep. He was started on Cymbalta and Trazodone with good effects. Patient reported that the combination was very effective, reporting that it helped his back pain slightly. He was calm and cooperative in the milieu but often ate his meals in his room, reporting that he does not like to be with other people. 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 Patient is leaving for [place] today and his medications were electronically sent to [facility] [address] [place] with a 30 day supply and no refills. In today's interview, patient is alert and oriented, pts dress is appropriate. Hygiene and grooming is well-kempt. Smiles on approach and is pleasant and engaged in the interview. Denies depression and anxiety. Denies suicidal and homicidal ideation, planning or intent. Denies and is not observed with mary, psychotic symptoms of delusions, bizarre thinking, obsessions, para noia, ruminations illogical thoughts, flight of ideas or having poor insight and judgement. Patient has normal mentation, declines further hospitalization on a voluntary status and meets criteria for discharge today. MENTAL STATUS EXAMINATION ON DISCHARGE: Patient is a 49 -year-old , male, with two reported prior psychiatric admissions for suicidal ideations, who presents to the emergency room after he reported +si due to ongoing issues with his son. General Appearance: disheveled, appears older than stated age, hospital scrubs/clothing Build: average Demeanor: average Eye Contact: average Activity: average, anxious Behavior: cooperative Speech: clear, normal volume, reg/rate,rhythm,volume Mood: reports continued depression Affect: flat, congruent Thought Process: logical/linear Thought Content (Delusions): none reported, denies SI, HI, AVH Thought Content (Other): none reported Thought Content (Aggressive): none reported Perception (Hallucinations): none reported Perception (Other): none reported Cognition (Impairment of): none reported Cognition(Intelligence Est.): average Oriented: Awake, Alert, Oriented times three Insight: fair Judgment: Fair Psychosis: Denies MEDICATIONS ON DISCHARGE: see Medication Reconciliation PLAN/FOLLOWUP ARRANGEMENTS: Patient is leaving [facility], received money from a friend to travel to [place] where is will be residing. The amount of time spent in the coordination of care for this patient was appr oximately 40 minutes. Vital Signs/I&Os Vital Signs Date Time Temp Pulse Resp B/P (MAP) Pulse Ox O2 Delivery O2 Flow Rate FiO2 06/01/20 08:20 98 124/86 05/31/20 18:15 97.2 18 100 05/31/20 06:42 Room Air Medications Scheduled Amlodipine Besylate (Amlodipine Besylate) 10 Mg Tablet, 10 MG PO DAILY for Blood Pressure, #30 Duloxetine HCl (Cymbalta) 20 Mg Capsule.dr, 20 MG PO DAILY for Depression, #30 Scheduled PRN Hydroxyzine HCl (Hydroxyzine HCl) 50 Mg Tablet, 100 MG PO BIDP PRN for ANXIETY, #120 Ibuprofen (Ibuprofen) 600 Mg Tablet, 600 MG PO Q6HP PRN for MODERATE PAIN (PS 5- 7), #1 Nicotine Polacrilex (Nicotine Gum) 2 Mg Gum, 4 MG PO Q4HP PRN for NICOTINE WITHDRAWAL, #1 Trazodone HCl (Trazodone HCl) 100 Mg Tablet, 100 MG PO QHSP PRN for INSOMNIA, #30 Allergies Coded Allergies: No Known Allergies (Verified Allergy, Unknown, 05/22/20) SEJAL DAVISON NP Jun 01, 2020 11:10
== END 2020-06-01 11:06 | disposition home or self-care (01) | DRG 755 ==
LOC: M ED 13:20 → M ED INP 05-23 16:15 → M PSY 05-23 17:39
PROVIDERS: ADMIT Psychiatry & Neurology Psychiatry; ATTEND Psychiatry & Neurology Psychiatry
DX: F43.23 Adjustment disorder with mixed anxiety and depressed mood (principal); I10 Essential (primary) hypertension; F10.129 Alcohol abuse with intoxication, unspecified; F17.200 Nicotine dependence, unspecified, uncomplicated; M54.5 Low back pain; Z63.8 Other specified problems related to primary support group; Z59.0 Homelessness; Z81.1 Family history of alcohol abuse and dependence; Z81.3 Family history of other psychoactive substance abuse and dependence; Z20.822 Contact with and (suspected) exposure to COVID-19